=== PATIENT | male | born 1960 | race Caucasian/White ===

== ENCOUNTER 2017-12-17 20:40 | Emergency (ER) | payer SELFPAY ==
[2017-12-17 21:54] VITALS: BP 173/99
--- NOTE | 2017-12-17 22:08 | RAD ---
Indication: Right shoulder pain. 4 views of the right shoulder demonstrates no fracture. AC joint arthritis is noted. Calcification is noted along the inferior clavicle likely at the coracoclavicular ligament insertion. IMPRESSION: AC joint arthritis without evidence of fracture.
--- NOTE | 2017-12-17 22:10 | ED ---
Upper Extremity Pain - HPI Summary HPI Summary: 57-year-old male presents with right shoulder pain today. He states he was pushing a cart and it got caught on his foot so he fell and reached out with his right arm. He states he felt a pain in his right shoulder pain. He states the pain radiates down his right arm. He has range of motion but has extreme amount of pain. He states the pain radiates into his arm. He denies any weakness. He denies any numbness or tingling. He has a history of clavicle fracture. He is right-handed. He works in the [employer] department at [employer]. He has not taken anything for his pain. - History of Current Complaint Chief Complaint: EDExtremityUpper Stated Complaint: RIGHT SHOULDER INJURY Time Seen by Provider: 12/17/17 21:41 - Allergies/Home Medications Allergies/Adverse Reactions: Allergies Allergy/AdvReac Type Severity Reaction Status Date / Time No Known Allergies Allergy Verified 12/17/17 20:53 PMH/Surg Hx/FS Hx/Imm Hx Endocrine/Hematology History: Denies: Hx Diabetes Cardiovascular History: Denies: Hx Hypertension, Hx Pacemaker/ICD Sensory History: Denies: Hx Hearing Aid Psychiatric History: Denies: Hx Panic Disorder - Surgical History Surgery Procedure, Year, and Place: LEFT MIDDLE EAR EXPLORATION WITH OSSICULOPLASTY 05/19/11 AT [facility] [place]. (safe upto 3t or less info scanned in under other facility reports). LT ANKLE SURGERY. VERICOSE VEIN SURGERY. LT KNEE SURGERY Infectious Disease History: No Infectious Disease History: Denies: Traveled Outside the [place] in Last 30 Days - Family History Known Family History: Positive: Hypertension - Social History Substance Use Type: Reports: None Smoking Status (MU): Unknown if Ever Smoked Review of Systems Negative: Fever Negative: Chest Pain Negative: Shortness Of Breath Positive: Myalgia - right shoulder pain All Other Systems Reviewed And Are Negative: Yes Physical Exam Triage Information Reviewed: Yes Vital Signs On Initial Exam: Initial Vitals Temp Pulse Resp BP Pulse Ox 99.8 F 83 16 157/91 99 12/17/17 20:45 12/17/17 20:45 12/17/17 20:45 12/17/17 20:45 12/17/17 20:45 Vital Signs Reviewed: Yes Appearance: Positive: Well-Appearing Skin: Positive: Warm, Dry Head/Face: Positive: Normal Head/Face Inspection Eyes: Positive: Normal, Conjunctiva Clear Respiratory/Lung Sounds: Positive: Clear to Auscultation, Breath Sounds Present Cardiovascular: Positive: Normal, RRR Musculoskeletal: Positive: Limited @ - right shoulder, Other - Tenderness over the rotator cuff, pain when push off stomach and behind back. Negative Nicholson impingement nontender elbow, nontender clavicle good pulses, capillary refill<2 secs, sensation grossly intact, Neurological: Positive: Normal Psychiatric: Positive: Normal Diagnostics - Vital Signs Vital Signs Temp Pulse Resp BP Pulse Ox 12/17/17 21:49 98.5 F 83 20 173/99 99 12/17/17 20:45 99.8 F 83 16 157/91 99 - Laboratory Lab Statement: Any lab studies that have been ordered have been reviewed, and results considered in the medical decision making process. - Radiology shoulder Xray Interpretation: No Acute Changes - arthritis Radiology Interpretation Completed By: Radiologist Course/Dx - Course Course Of Treatment: 57-year-old male presents with right shoulder pain today. He states he was pushing a cart and it got caught on his foot so he fell and reached out with his right arm. He states he felt a pain in his right shoulder pain. He states the pain radiates down his right arm. He has range of motion but has extreme amount of pain. He states the pain radiates into his arm. He denies any weakness. He denies any numbness or tingling. He has a history of clavicle fracture. He is right-handed. He works in the [employer] department at [employer]. He has not taken anything for his pain. on exam has tenderness with push off from stomach and behind back. neg nicholson impingment. pain over muscles over rotator cuff, neurovascular intact. xray normal. will have rest and if no improvement have follow up with ortho. patient understand and agrees with plan. - Diagnoses Differential Diagnosis/HQI/PQRI: Positive: Fracture (Closed), Strain, Sprain Provider Diagnoses: Right shoulder pain Discharge - Sign-Out/Discharge Documenting (check all that apply): Discharge/Admit/Transfer - Discharge Plan Condition: Good Disposition: HOME Patient Education Materials: Shoulder Pain (ED) Forms: *Work Release Referrals: Francois Cid MD [Medical Doctor] - No Primary Care Phys,NOPCP [Primary Care Provider] - Additional Instructions: Take Tylenol and ibuprofen every 6 hours as needed for pain Ice/heat Rest for two days and then do range of motion of shoulder Follow up with ortho if no improvement Return to ED if develop any new or worsening symptoms - Billing Disposition and Condition Condition: GOOD Disposition: HOME
== END 2017-12-17 22:35 | disposition home or self-care (01) ==
LOC: ED 20:40
DX: M25.511 Pain in right shoulder (principal)
CPT/HCPCS: 99281